=== PATIENT | male | born 1985 | race Caucasian/White ===

== ENCOUNTER 2018-05-17 16:35 | Emergency (ER) | payer MEDICAID ==
[~2018-05-17] VITALS: Ht 200.7 cm; Wt 113.4 kg
[2018-05-17] MEDS ORDERED: NKM (16:42)
[2018-05-17 16:43] VITALS: BP 121/80
--- NOTE | 2018-05-17 16:43 | NUR ---
ED Nurse Note: ambulated in to ER due to pain on left 2nd finger x1 week. Also c/o diarrhea x 1 week and abcess on left earlobe. Denies bloody stool.
--- NOTE | 2018-05-17 17:16 | Emergency Room Report ---
History of Present Illness General Chief Complaint: General Complaint Source: Patient Present Illness HPI 32-year-old male presents to the emergency department complaining of 5 out of 10 in severity localized burning pain to the left index finger times one week. Patient reports history of paronychia, past and states that his symptoms are similar to previously experienced symptoms. Patient denies fevers or chills he reports that he bit off a hangnail last week. Patient reports that his symptoms of been progressive. Patient also reports small cyst on the left ear that he states is not painful and has not become erythematous, tender or warm. Patient denies swollen tender lymph nodes. Patient also reports persistent diarrhea he states that he was diagnosed with Giardia and was placed on Flagyl for which he missed several days of an states that his symptoms never completely resolved. Patient is requesting treatment for his diarrhea as well. Patient denies recent travel and he denies ill contacts with similar symptoms. Patient denies blood in the stool or black tarry stools. Patient denies abdominal tenderness or pain at this time. States he is UTD with tetanus. 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 Neck: full range of motion Respiratory: lungs clear, normal breath sounds, speaking full sentences Cardiovascular #1: regular rate, rhythm, normal capillary refill Gastrointestinal: normal bowel sounds, non tender, soft, no peritonitis, non- distended, no guarding Rectal: deferred Musculoskeletal: back normal, gait/station normal, normal range of motion, non- tender Neurologic: alert, oriented x3, responsive, motor strength/tone normal, sensory intact, speech normal, grossly normal Psychiatric: judgement/insight normal Skin: warm/dry, well hydrated, other - mild paronychia, left index finger- already draining. erythema, warmth and swelling about the cuticle line. Lymphatic: no adenopathy Medical Decision Making PA Attestation Dr. Bob is my supervising Physician whom patient management has been discussed with. Diagnostic Impression: Primary Impression: Paronychia of finger of left hand Additional Impressions: Diarrhea Qualified Codes: R19.7 - Diarrhea, unspecified Family history of giardia infection ER Course 32-year-old male presents to the emergency department complaining of 5 out of 10 in severity localized burning pain to the left index finger times one week. Patient reports history of paronychia, past and states that his symptoms are similar to previously experienced symptoms. Patient denies fevers or chills he reports that he bit off a hangnail last week. Patient reports that his symptoms of been progressive. Patient also reports small cyst on the left ear that he states is not painful and has not become erythematous, tender or warm. Patient denies swollen tender lymph nodes. Patient also reports persistent diarrhea he states that he was diagnosed with Giardia and was placed on Flagyl for which he missed several days of an states that his symptoms never completely resolved. Patient is requesting treatment for his diarrhea as well. Patient denies recent travel and he denies ill contacts with similar symptoms. Patient denies blood in the stool or black tarry stools. Patient denies abdominal tenderness or pain at this time. States he is UTD with tetanus. Ddx considered but are not limited to cellulitis, paronychia, eponychia, ingrown toe nail, fracture, d/L, gout, felon, infectious diarrhea, C. diff, just to name a few. Vital signs: are WNL, pt. is afebrile H&PE are most consistent with mild paronychia, left index finger- already draining. ORDERS: none required at this time, the diagnosis is clinical ED INTERVENTIONS: -Bentyl PO --d/w pt. GI or infectious disease follow up if his diarrhea symptoms persist. Pt. given ED return precautions. DISCHARGE: At this time pt. is stable for d/c to home. Will provide printed patient care instructions, and any necessary prescriptions. Care plan and follow up instructions have been discussed with the patient prior to discharge. Last Vital Signs Date Time Temp Pulse Resp B/P (MAP) Pulse Ox O2 Delivery O2 Flow Rate FiO2 05/17/18 16:43 88 16 Room Air 05/17/18 16:43 98.1 121/80 96 Disposition: HOME, SELF-CARE Condition: Stable Scripts Dicloxacillin Sodium (DICLOXACILLIN SODIUM) 500 Mg Capsule 500 MG ORAL EVERY 6 HOURS for 7 Days, #28 CAP 0 Refills Prov: Lashonda Robles 05/17/18 Mupirocin* (MUPIROCIN*) 22 Gm Oint...g. 1 APPLIC TOPIC THREE TIMES A DAY, #22 GM Prov: Lashonda Robles 05/17/18 Metronidazole* (FLAGYL*) 250 Mg Tablet 250 MG ORAL THREE TIMES A DAY for 7 Days, #21 TAB 0 Refills Prov: Lashonda Robles 05/17/18 Dicyclomine Hcl* (DICYCLOMINE HCL*) 10 Mg Capsule 10 MG PO QID, #16 CAP Prov: Lashonda Robles 05/17/18 Patient Instructions: Diarrhea, Adult, Paronychia, [id number] Additional Instructions: Take medications as directed. Follow up with a Primary Care Provider in 3-5 days, even if your symptoms have resolved. --Please review list of primary care clinics, if you do not already have a primary care provider Return sooner to ED if new symptoms occur, or current symptoms become worse. - Please note that this Emergency Department Report was dictated using [employer] cashier technology software, occasionally this can lead to erroneous entry secondary to interpretation by the dictation equipment. Lashonda oRbles May 17, 2018 17:16
[2018-05-17] MEDS ORDERED: Dicyclomine HCl 10mg/5ml oral soln ORAL ONE (17:30)
[2018-05-17] MEDS ORDERED: MUPIROCIN22 GM TOPIC (17:33)
[2018-05-17] MEDS ORDERED: METRONIDAZOLE250 MG ORAL (17:33)
[2018-05-17] MEDS ORDERED: DICYCLOMINE HCL10 MG PO (17:33)
[2018-05-17] MEDS ORDERED: DICLOXACILLIN500 M1 ORAL (17:33)
[2018-05-17 17:42] VITALS: BP 121/80
--- NOTE | 2018-05-17 17:43 | NUR ---
ED Nurse Note: Pt cleared DC by BEV Gallego. Pt is A/Ox4, VSS, DC instruction and prescriptions given, pt verbalized understanding. ID wristband removed. All belongings given to pt. Pt ambulated out of ER with steady gait.
== END 2018-05-17 17:43 | disposition home or self-care (01) ==
LOC: EMR 17:39
DX: L03.012 Cellulitis of left finger (principal); R19.7 Diarrhea, unspecified; Z88.2 Allergy status to sulfonamides
CPT/HCPCS: 99282